=== PATIENT | female | born 1970 | race American Indian/Alaskan Native ===

== ENCOUNTER 2019-12-29 15:18 | Emergency (ER) | payer OTHER ==
[2019-12-29] MEDS ORDERED: ONDANSETRON 4 MG/2 ML INJ IV ONE (15:53)
[2019-12-29] MEDS ORDERED: MORPHINE 4 MG/1 ML INJ IV ONE (15:53)
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
[2019-12-29] MEDS ORDERED: HYDROmorphone 1 MG/1 ML INJ IV ONE (17:57)
[2019-12-29] MEDS ORDERED: KETOROLAC 30 MG/1 ML INJ IV ONE (17:58)
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
[2019-12-29 20:57] VITALS: BP 147/80
== END 2019-12-29 21:00 | disposition other institution (70) ==
LOC: ED 15:18
DX: S22.31XA Fracture of one rib, right side, initial encounter for closed fracture (principal); S27.0XXA Traumatic pneumothorax, initial encounter; S82.54XA Nondisplaced fracture of medial malleolus of right tibia, initial encounter for closed fracture; J45.909 Unspecified asthma, uncomplicated; Z98.890 Other specified postprocedural states; V49.59XA Passenger injured in collision with other motor vehicles in traffic accident, initial encounter; Y93.89 Activity, other specified; Y92.410 Unspecified street and highway as the place of occurrence of the external cause; Y99.8 Other external cause status
CPT/HCPCS: 29515; 71045; 71250; 72040; 72070; 72100; 72125; 73610; 96374; 96375; 99285; J1170; J1885; J2270; J2405